=== PATIENT | male | born 1980 | race Caucasian/White ===

== ENCOUNTER 2016-04-04 01:31 | Emergency (ER) | payer SELFPAY ==
[~2016-04-04] VITALS: Ht 172.7 cm; Wt 88.5 kg
[~2016-04-04 01:31] MED LIST: CLEOCIN300 MG PO; HYDROCODON-ACE1 EAC7 PO; INDOCIN25 MG PO; KEFLEX500 MG PO; MOTRIN800 MG PO; NO HOME MEDS; PEN-VEE K,VEET500 MG PO; PERCOCET 5/31 TABLET PO; VIBRAMYCIN100 MG PO; VICODIN 5-3001 EACH PO
[2016-04-04] MEDS ORDERED: ULTRAM50 MG PO (03:35)
[2016-04-04 03:52] VITALS: BP 123/87
== END 2016-04-04 03:53 | disposition home or self-care (01) ==
LOC: EME 01:31
DX: S20.212A Contusion of left front wall of thorax, initial encounter (principal); Y09 Assault by unspecified means; F17.200 Nicotine dependence, unspecified, uncomplicated
CPT/HCPCS: 71020; 99281; 99284

== ENCOUNTER 2016-04-19 09:57 | Emergency (ER) | payer SELFPAY ==
[~2016-04-19] VITALS: Ht 175.3 cm; Wt 86.6 kg
[~2016-04-19 09:57] MED LIST changes: +ULTRAM50 MG PO
[2016-04-19] MEDS ORDERED: MOBIC7.5 MG PO (10:36)
[2016-04-19] MEDS ORDERED: ULTRAM50 MG PO (10:36)
[2016-04-19 11:00] VITALS: BP 140/92
== END 2016-04-19 11:02 | disposition home or self-care (01) ==
LOC: EME 09:57
DX: S20.212A Contusion of left front wall of thorax, initial encounter (principal); Y04.0XXA Assault by unarmed brawl or fight, initial encounter
CPT/HCPCS: 99281; 99283